=== PATIENT | male | born 1950 | race Caucasian/White ===

== ENCOUNTER 2025-01-04 20:21 | Emergency (ER) | payer OTHER, SELFPAY ==
[2025-01-04 20:27] VITALS: BP 164/80; BMI 29.9
--- NOTE | 2025-01-04 21:23 | ED.SKININJ ---
HPI-Injury
General
Chief Complaint: Bite
Source: patient and significant other
Time Seen by Provider: 01/04/25 20:33
History of Present Illness-Injury
Initial Injury comments:
This is a 74yo male who presents after his dog snapped at him and bit his nose. he denies any other injuries. no eye involvement. anticoagulant use.
Past History
Past History
ED Past Medical History: Other (esophageal strictures)
ED Past Surgical History: Appendectomy, Tonsilectomy and Other
Social History
Tobacco: Non-smoker
Alcohol: None
Personal:
Living: with family
Family History
Family History: Negative Diabetes, Hypertension, Early CAD, Asthma or Cancer
Phy Exam
Physical Exam
Physical Exam:
CONSTITUTIONAL Vital signs reviewed, Patient alert and oriented to person, place and time. Well-appearing
HEAD atraumatic, normocephalic.
EYES eyelids normal to inspection, Extraocular muscles intact, Conjunctiva normal, Sclera normal. \\
ENT large laceration to the tip of the nose where the tip of the nose is almost completely avulsed. There is a hockey shaped edged to the right nare. The left nare is somewhat detached down to the base at the maxillary region. He is missing skin
at the tip of the nose but the septum is intact. The laceration extends transversely across the top of the nose about 2.5 to 3 cm. There is just minor active oozing of blood.
NECK normal range of motion, Trachea midline, no jugular venous distention.
RESP no respiratory distress
BACK No obvious deformities
UPPER EXTREMITY Gross Range of motion normal, gross motor strength normal
LOWER EXTREMITY Gross range of motion normal, Gross motor strength normal
NEURO Speech normal, No focal motor deficits include, Kan coma scale 15, Memory normal, Cranial Nerves intact to screening exam.
SKIN Skin warm, dry, and normal in color.
PSYCHIATRIC Patient oriented to person place and time, Normal affect.
Course
Orders/Labs/Results
Orders:
Orders
01/04/25 21:22
Amoxicillin 875 mg/Clav 125 mg [Augmentin 875 mg/125 mg] 1 tablet PO NOW STA
01/04/25 21:34
Tetanus/Diphth/Acelpertussis [Adacel] 0.5 ml IM .ONCE ONE
Vital Signs
Initial and Last Documented VS:
Initial Vital Signs
Temp Pulse Resp BP Pulse Ox
97.6 F 85 20 164/80 95
01/04/25 20:27 01/04/25 20:27 01/04/25 20:27 01/04/25 20:27 01/04/25 20:27
Last Documented Vital Signs
Temp Pulse Resp BP Pulse Ox
97.6 F 78 18 138/66 98
01/04/25 20:27 01/04/25 22:05 01/04/25 22:05 01/04/25 22:05 01/04/25 22:05
MDM/Problems Addressed
MDM/Problems Addressed:
nose avulsion, dog bite, large facial laceration
*Pulse Oximetry
Patient hypoxic: no
*Critical Care Note
Total Time (30-74mins, 75-104mins- exclusive of procedures): 35 minutes
Data Reviewed
Source: patient
Patient Management
Discussion with other providers: Special Agent In Charge (Case discussed with ENT/plastics Dr. Obregon. States that the patient will need a paramedian forehead flap)
Escalation/DeEscalation of care consider admission/obs:
The patient lives in [place]. Complicated nasal avulsion/laceration. Will need currently skin grafting. Spoke with Dr. Obregon who also spoke with the patient. States he will likely need a paramedian forehead flap. Given the fact that the
patient lives in [place] he prefers to travel closer to home. In fact he wants to go to [facility] as he lives closer to [place]. Surgery recommends nonadherent dressing for now the patient will present to [facility].
Attempting to connect with [facility] to sign out
Update Note
Update Note:
ED Attending Note
-
Portions of this chart may have been created with voice recognition software.� Occasional wrong word or��sound alike� substitutions may have occurred due to the inherent limitations of voice recognition software.
Discharge Plan
Departure
Patient Disposition: Home (Routine Discharge)
Date of Disposition: 01/04/25
Time of Disposition: 21:29
Patient with high blood pressure during this ER visit?: Yes
Discharge Problem:
Dog bite
Instructions: Animal Bites (DC), Wound Care (DC), BLOOD PRESSURE
Prescriptions:
New
amoxicillin-pot clavulanate 875-125 mg tablet
1 tab PO BID Qty: 20 0RF
No Action
[place] 3 Fish Oil Capsule
1 cap PO DAILY
Referrals:
Vish Obregon, DO [Active] -
Activity Restrictions/Additional Instructions:
As discussed, your nasal injury does need further attention. [facility]. If you would like care here you may return at any time.
Interventions
Interventions:
*Risk Screen - Suicide Last Done: 01/04/25 20:27
*General Assessment Last Done: 01/04/25 20:27
*Neglect/Abuse Screening Last Done: 01/04/25 20:27
*ED- Fall Risk Assessment Last Done: 01/04/25 20:27
*Nursing Disposition Last Done: 01/04/25 22:05
ED-Skin Assessment Last Done: 01/04/25 20:50
Discharge Date and Time
Discharge Date/Time: 01/04/25 22:06
Print Language: ARMENIAN
[2025-01-04] MEDS: ADACEL 0.5 ML IM (21:38)
[2025-01-04] MEDS: AUGMENTIN 875 MG/125 MG 1 TABLET PO (21:39)
[2025-01-04 22:05] VITALS: BP 138/66
== END 2025-01-04 22:06 | disposition home or self-care (01) ==
LOC: EMR 20:21
PROVIDERS: EMERGENCY PHYSICIAN Emergency Medicine
DX: S01.85XA Open bite of other part of head, initial encounter (principal); W54.0XXA Bitten by dog, initial encounter; Z23 Encounter for immunization; Z82.49 Family history of ischemic heart disease and other diseases of the circulatory system; Z90.49 Acquired absence of other specified parts of digestive tract
CPT/HCPCS: 99282; 90471; 90715